=== PATIENT | male | born 1940 ===

== ENCOUNTER 2020-09-25 17:41 | Emergency (ER) | payer OTHER ==
[~2020-09-25] VITALS: Ht 180.3 cm; Wt 87.7 kg
[2020-09-25 17:45] VITALS: BP 120/58
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
== END 2020-09-25 17:59 ==
LOC: ER FS 17:44
DX: S50.812A Abrasion of left forearm, initial encounter (principal); S50.811A Abrasion of right forearm, initial encounter; V89.2XXA Person injured in unspecified motor-vehicle accident, traffic, initial encounter
CPT/HCPCS: 99281